=== PATIENT | female | born 1980 | race Caucasian/White ===

== ENCOUNTER 2018-08-14 08:04 | Day surgery (SDC) | payer OTHER ==
[2018-08-14 08:21] LABS: Specific Gravity <= 1.005 (1.005-1.030)
[2018-08-14] MEDS ORDERED: Ringers Lactate 1,000 ML IV ONE ×3 (08:37→08:47)
[2018-08-14] MEDS ORDERED: GENTAMICIN SULF 80 MG/2ML INJ ONE (08:37)
[2018-08-14] MEDS ORDERED: NS 0.9% VIAL 20 ML ONE (08:37)
[2018-08-14] MEDS ORDERED: Mastisol Adhesive Liq ONE (08:37)
[2018-08-14] MEDS ORDERED: CEFAZOLIN SODIUM 1 GM/VIAL ONE (08:37)
[2018-08-14] MEDS ORDERED: BACITRACIN 50000 UNIT VIAL ONE (08:38)
[2018-08-14] MEDS ORDERED: PROPOFOL 200 MG/20 ML VIAL IV ONE (08:42)
[2018-08-14] MEDS ORDERED: LIDOCAINE 2% MPF 5 ML VIAL ONE (08:42)
[2018-08-14] MEDS ORDERED: ROCURONIUM 50 MG/5 ML VIAL IV ONE (08:42)
[2018-08-14] MEDS ORDERED: ONDANSETRON 4 MG/2 ML VIAL ONE (08:42)
[2018-08-14] MEDS ORDERED: DEXAMETHASONE 10 MG/ML VIAL ONE (08:42)
[2018-08-14] MEDS ORDERED: MIDAZOLAM HCL 2 MG/2 ML INJ ONE (08:42)
[2018-08-14] MEDS ORDERED: FENTANYL CITR 250 MCG/5 ML ONE ×2 (08:42→11:42)
[2018-08-14] MEDS ORDERED: CEFAZOLIN/SWI 1gm 1 GM/10 ML SYR ONE (08:47)
[2018-08-14] MEDS ORDERED: SCOPOLAMINE HYDROBROMIDE PATCH TD ONE (08:47)
[2018-08-14] MEDS ORDERED: GLYCOPYRROLATE 0.2 MG/ML SYR ONE (09:54)
[2018-08-14] MEDS ORDERED: KETOROLAC 30 MG/ML INJ ONE (13:38)
[2018-08-14] MEDS ORDERED: HYDROMORPHONE HCL 2 MG/ML inj ONE (14:38)
[2018-08-14] MEDS ORDERED: HYDROCODONE/APAP 5/325 MG TAB PO ONE (15:30)
[2018-08-14] MEDS ORDERED: HYDROCODONE/APAP 5/325 MG TAB ONE (15:44)
--- NOTE | 2018-08-15 08:26 | OP ---
Surgeon: Edgar Luis MD Whip Sawyer: Aric. Preoperative Diagnosis: Status post breast augmentation. Postoperative Diagnosis: Status post breast augmentation. Procedure Performed: Explantation and lift. Anesthesia: General. Procedure In Detail: After satisfactory induction of general anesthesia, chest was prepped with Dura Prep, dry sterile drapes applied in the usual manner. A 45 template was used to outline both areola a nd transverse and curvilinear incisions were made. The intervening skin was de-epithelized with EpiC ut or dermabrader. Flaps were elevated 1 cm thick cephalad towards the sternum, clavicle, anterior a xillary line on both sides. Then, the inferior incision was made. Dissection proceeded down lateral ly. The implants were retroperitoneal. Incision was made above to the pectoralis major muscle, and fat removed and then the intervening skin was formed into a cone using 2-0 PDS suture after _ and straps were elevated at 12 o'clock, 1:30, and 3 o'clock positions and the right breast, mirror image to the left. Straps were woven in and out of the pectoralis major muscle, back to the base of the cone, back to pectoralis major muscle, back to the base of the cone, tied to themselves with 2-0 PDS. the 3 o'clock strap was sewn over the sternum at 3 o'clock position with 2-0 Ethibon d. Left side was done in mirror image manner. The patient was sat up. After wound was stapled clos ed, checked for symmetry and position. resected. A 10 LETICIA was brought out the axilla, sew n in place with 2-0 silk. Wound was closed in layers with 3-0 Vicryl subcu, 3-0 PDS running subcutic ular breast. After this was done the patient was then sat up. Site for new nipple-areola r complex was marked out. Tissue was cored out template. Nipple delivered and sewn with interrupted 4-0 PDS, followed by 4-0 PDS running subcuticular. Dressings consisted of tincture of sharon zoin, Steri-Strips, 5x5s, fluffs, and Shant wrap. The patient tolerated the procedure well. Implants were 400 cc implants on both right and left. Right breast tissue removed was 16 g, left wa s 20 g. ADARSH/GERRI Voice ID: [id number] Report ID: [id number]
== END 2018-08-14 16:05 | disposition home health service (06) ==
LOC: OR 08:04
PROVIDERS: ATTEND Specialist
PROC: 0HPT0JZ Removal of Synthetic Substitute from Right Breast, Open Approach (ICD-10-PCS; 2018-08-14)
PROC: 0HSV0ZZ Reposition Bilateral Breast, Open Approach (ICD-10-PCS; 2018-08-14)
PROC: 0HPU0JZ Removal of Synthetic Substitute from Left Breast, Open Approach (ICD-10-PCS; principal; 2018-08-14 09:00)
DX: N65.1 Disproportion of reconstructed breast (principal); N60.42 Mammary duct ectasia of left breast
CPT/HCPCS: 81025; 88305; J0690; J1100; J1170; J1580; J2250; J2405; J2704; J3010